=== PATIENT | female | born 1970 | race Caucasian/White ===

== ENCOUNTER 2020-06-28 12:40 | Outpatient (CLI) | payer OTHER, SELFPAY ==
--- NOTE | ~2020-06-28 | MM_ITS ---
EXAMINATION: MM screening mati BI w dahlia HISTORY: Screening mammogram TECHNIQUE: Craniocaudal and mediolateral oblique 3-D tomosynthesis images were obtained and synthetic 2-D images were generated. CAD analysis was submitted and interpreted. COMPARISON: 02/28/2019 diagnostic left digital mammogram and limited left breast ultrasound 02/15/2019, 01/27/2018, 09/05/2016 bilateral digital screening mammogram examinations BREAST PARENCHYMAL COMPOSITION: The breasts are heterogeneously dense, which may obscure small masses . FINDINGS: There is no evidence of suspicious mass, calcification, or architectural distortion to sugg est malignancy in either breast. There has been no suspicious interval change. IMPRESSION: 1. No mammographic evidence of malignancy. 2. Recommend routine screening mammography in one year. BI-RADS Category 1: Negative Reviewed, dictated and finalized at location A. BOARD DESIGNER
== END 2020-06-28 12:41 ==
PROVIDERS: PCP Family Medicine; Visit Provider Nurse Practitioner Obstetrics & Gynecology
DX: Z12.31 Encounter for screening mammogram for malignant neoplasm of breast (principal)
CPT/HCPCS: 77063; 77067

== ENCOUNTER 2024-07-13 00:07 | Emergency (ER) | payer OTHER, SELFPAY ==
[2024-07-13 00:08] VITALS: BP 128/86; PULSE 109; RESP 20; TEMP 36.8; O2SAT 100
--- OUTSIDE RECORDS SUMMARY | 2024-07-13 00:14 | XMS_ITS | Referral Summary ---
Author Organization [facility] [address] [facility] Address [address] [place] [address] Care Team Providers Care Conservation Technician Name Role Phone Julius Toledo MD Primary Care Provider [phone] Encounters Date Type Department Care Team Description 06/29/2024 2:33 PM RUG DYER - 06/29/2024 11:59 PM RUG DYER Hospital Encounter [facility] [address] [place] [address] Abnormal mammogram of right breast Discharge Disposition: Discharge to home or self care 06/29/2024 2:33 PM RUG DYER - 06/29/2024 11:59 PM RUG DYER Hospital Encounter [facility] [address] [place] [address] Abnormal mammogram of right breast Discharge Disposition: Discharge to home or self care 06/03/2024 3:00 PM RUG DYER Office Visit [facility] [address] [facility] [address] [place] [id number] Clarissa Matthews NP Migraine with aura and without status migrainosus, not intractable 05/23/2024 Telephone [facility] [address] [place] [address] Julius Toledo MD Additional Services Or Orders from Last 3 Months Allergies Active Allergy Reactions Criticality Noted Date Comments Morphine Rash Reaction: Rash, Medications ergocalciferol (VITAMIN D) 50,000 unit capsule Take 1 capsule (50,000 Units total) by mouth once a week 12 capsule 3 4 09/14/19 25 Active triamcinolone (KENALOG) 0.1 % creamIndications:A llergic contact dermatitis due to plants, except food Apply topically 3 (three) times a day for 10 days 28.4 g 4 Active rizatriptan PATIENT CARE (MAXALT-PATIENT CARE) 10 mg disintegrating tabletIndications: Migraine with aura and without status migrainosus, not intractable Take 1 tablet (10 mg total) by mouth once as needed for migraine May repeat in 2 hours if unresolved. Do not exceed 30 mg in 24 hours. 9 tablet 11 5 06/03/19 26 Active rimegepant (NURTEC ODT) tablet,disintegrat ing Take 1 tablet (75 mg total) by mouth daily as needed (migraine fare up) 8 tablet 11 5 Active topiramate (TOPAMAX) 50 mg tabletIndications: Migraine with aura and without status migrainosus, not intractable Take 1 tablet (50 mg total) by mouth 2 (two) times a day 180 tablet 3 5 06/03/19 26 Active Active Problems Problem Noted Date Diagnosed Date Vitamin D deficiency 09/10/2023 Assessment & Plan (09/10/2023 2:54 PM CDT): Will check vitamin-D level today and plan accordingly. Menorrhagia with regular cycle 02/07/2022 Family history of thyroid disease 07/28/2021 Overview (07/28/2021): TFTs ordered. aware to check [facility] for results/lab letter. Encounter for vitamin deficiency screening 07/28 Overview (07/28/2021): vitamin D ordered. will contact via [facility] (reuslts/lab letter) to give results. Class 3 severe obesity due t o excess calories without serious comorbidity with body mass index (BMI) of 40.0 to 44.9 in adult 07/26/2021 Assessment & Plan (07/28/2021 4:27 PM CDT): Reviewed need to lose weight, reviewed health benefits. Reviewed recommendations for daily intake & activity 20-30 minutes/day. Discussed healthy diet and importance of regular physical activity. Colon cancer screening 07/26/2021 Assessment & Plan (09/10/2023 2:53 PM CDT): Does not have time for colonoscopy. Denies personal or family history colon cancer or polyps. She is interested in Cologuard. Discussed possible false-negative and false-positive results. She states understanding. Assessment & Plan (07/28/2021 4:29 PM CDT): Referral to [facility] for colon cancer screening. Aware that GI office should call to set up. Contact # given to call if she does not receive call. Screening mammogram for breast cancer 07/26/2021 Assessment & Plan (07/28/2021 4:29 PM CDT): Mammogram order given; will call with results when received. Encouraged to perform monthly SBE. Left knee pain 11/12/2020 Assessment & Plan (11/12/2020 4:19 PM CDT): Pain improves with ibuprofen. Given prednisone and referral to ortho for further evaluation given new swelling in setting of no injury. Aware to not take ibuprofen/nsaids while taking prednisone. Reviewed correct dose of ibuprofen. Will also try topical treatment. Continue RICE. Plantar fasciitis, bilateral 11/12/2020 Assessment & Plan (11/12/2020 4:27 PM CDT): Patient history consistent with PF. No abnormal findings on exam. Reviewed proper footwear and stretching exercise handout given. Class 2 obesity due to exces s calories without serious comorbidity with body mass index (BMI) of 38.0 to 38.9 in adult 07/13/2020 Assessment & Plan (11/12/2020 4:17 PM CDT): Weight increase of 10lbs in the past year. Discussed diet and exercise to achieve weight loss. Recommend limiting refined sugar, simple carbohydrates, fast foods, and processed foods. Increase intake of lean meats, low-fat dairy, fresh fruits/vegetables, and fiber. Drink plenty of water and eliminate sugar- sweetened beverages. Patient more motivated to lose weight with current knee pain. Assessment & Plan (07/13/2020 3:07 PM RUG DYER): Reviewed need to lose weight, reviewed health benefits. Reviewed recommendations for daily intake & activity 20-30 minutes/day. Discussed healthy diet and importance of regular physical activity. Annual physical exam 01/25/2019 Assessment & Plan (09/10/2023 2:52 PM CDT): In regard to health maintenance, Colonoscopy Cologuard ordered Mammogram up-to-date ASCVD risk: 1.7% Eat a healthy diet: focus on lean meats and proteins, more fruits, vegetables and whole grains and low in sugars and fats. Limit red meat and avoid processed meat. Maintain a healthy weight; avoid being overweight. Aim for a normal body mass index (BMI) of 18.5-24.9. Help learning to eat healthier, we can set up appointment with brusher and shearer/production supervisor trainee. Have an active lifestyle, strive for 30 minutes of moderate exercise 5 times a week and strength or resistance training at least twice a week. Use broad-spectrum (UVA+UVB) sunscreen with SPF 30 or greater, is water resistant, limit time spent in the sun (10 am-4pm), wear hat, wear UV protective clothing, wear sunglasses. Never use a tanning bed. Skin that was irradiated may be more sensitive over your lifetime. Do not smoke or chew tobacco; participate in a smoking cessation program. Limit alcohol intake, 1 drink per day for a woman and 2 drinks per day for a man. Assessment & Plan (07/28/2021 4:25 PM CDT): 1. Eat a healthy diet: focus on lean meats and proteins, more fruits, vegetables and whole grains and low in sugars and fats. Limit red meat and avoid processed meat. 2. Maintain a healthy weight; avoid being overweight. Aim for a normal body mass index (BMI) of 18.5-24.9. Help learning to eat healthier, we can set up appointment with brusher and shearer/production supervisor trainee. 3. Have an active lifestyle, strive for 30 minutes of moderate exercise 5 times a week and strength or resistance training at least twice a week. 4. Use broad-spectrum (UVA+UVB) sunscreen with SPF 30 or greater, is water resistant, limit time spent in the sun (10 am-4pm), wear hat, wear UV protective clothing, wear sunglasses. Never use a tanning bed. Skin that was irradiated may be more sensitive over your lifetime. 5. Does not smoke or chew tobacco. 6. Limit alcohol intake, 1 drink per day for a woman. Assessment & Plan (07/13/2020 3:36 PM RUG DYER): 1. Eat a healthy diet: focus on lean meats and proteins, more fruits, vegetables and whole grains and low in sugars and fats. Limit red meat and avoid processed meat. 2. Maintain a healthy weight; avoid being overweight. Aim for a normal body mass index (BMI) of 18.5-24.9. Help learning to eat healthier, we can set up appointment with brusher and shearer/production supervisor trainee. 3. Have an active lifestyle, strive for 30 minutes of moderate exercise 5 times a week and strength or resistance training at least twice a week. 4. Use broad-spectrum (UVA+UVB) sunscreen with SPF 30 or greater, is water resistant, limit time spent in the sun (10 am-4pm), wear hat, wear UV protective clothing, wear sunglasses. Never use a tanning bed. Skin that was irradiated may be more sensitive over your lifetime. 5. Does not smoke or chew tobacco. 6. Limit alcohol intake, 1 drink per day for a woman. Assessment & Plan (01/25/2019 12:03 PM CDT): 1. Eat a healthy diet: focus on lean meats and proteins, more fruits, vegetables and whole grains and low in sugars and fats. Limit red meat and avoid processed meat. 2. Maintain a healthy weight; avoid being overweight. Aim for a normal body mass index (BMI) of 18.5-24.9. Help learning to eat healthier, we can set up appointment with brusher and shearer/production supervisor trainee. 3. Have an active lifestyle, strive for 30 minutes of moderate exercise 5 times a week and strength or resistance training at least twice a week. 4. Use broad-spectrum (UVA+UVB) sunscreen with SPF 30 or greater, is water resistant, limit time spent in the sun (10 am-4pm), wear hat, wear UV protective clothing, wear sunglasses. Never use a tanning bed. Skin that was irradiated may be more sensitive over your lifetime. 5. Do not smoke or chew tobacco; participate in a smoking cessation program. 6. Limit alcohol intake, 1 drink per day for a woman. Encounter for screening for lipoid disorders 02/2019 Assessment & Plan (07/28/2021 4:26 PM CDT): 01/26/19 JX=655 HDL=55 TG=68 KKG=223 TC/HDL=3/0 03/13/20 KP=094 HDL=55 ZZ=501 LDL=98 TC/HDL=3.2 07/13/20 NO=346 HDL=55 WS=584 LDL=98 TC/HDL=3.2 Reviewed that LDL upper end of normal. Reviewed lifestyle changes to improve lipid panel. Lipid panel ordered; will call w/results when received. Reviewed diet/exercise recommendations. The 10-year ASCVD risk score (Jyoti ULLOA Jr., et al., 2013) is: 1% Values used to calculate the score: Age: 51 years Sex: Female Is Non- : No Diabetic: No Tobacco smoker: No Systolic Blood Pressure: 122 mmHg Is BP treated: No HDL Cholesterol: 55 mg/dL Total Cholesterol: 179 mg/dL Assessment & Plan (07/14/2020 4:06 PM RUG DYER): 01/26/19 YB=949 HDL=55 TG=68 EFE=508 TC/HDL=3/0 03/13/20 TX=638 HDL=55 RI=096 LDL=98 TC/HDL=3.2 07/13/20 OR=151 HDL=55 TI=886 LDL=98 TC/HDL=3.2 The 10-year ASCVD risk score (Jyoti ULLOA Jr., et al., 2013) is: 0.7% Values used to calculate the score: Age: 49 years Sex: Female Is Non- : No Diabetic: No Tobacco smoker: No Systolic Blood Pressure: 116 mmHg Is BP treated: No HDL Cholesterol: 55 mg/dL Total Cholesterol: 179 mg/dL Copy of results given to Rosalia Ruffin. Reviewed results at time of appointment. Assessment & Plan (01/25/2019 12:03 PM CDT): Lipid panel ordered; will call w/results when received. Reviewed diet/exercise recommendations. Mastodynia 10/15/2018 Disorder of breast 08/11/2018 Overview (07/03/2023): Disorder of breast, unspecified;Recorded Elsewhere: No Location: [facility] Source: EHR Chronic: N Practice ID: [id number] Billable Time: 11:30:00 AM Refused influenza vaccine 07/08/2018 Assessment & Plan (07/28/2021 4:24 PM CDT): Discussed and the patient refuses immunization today. Educated regarding the need to vaccinate for personal protection and to limit the viruses in the community to protect those most vulnerable. Assessment & Plan (07/13/2020 3:34 PM RUG DYER): Discussed and the patient refuses immunization today. Educated regarding the need to vaccinate for personal protection and to limit the viruses in the community to protect those most vulnerable. Assessment & Plan (01/25/2019 11:53 AM CDT): Discussed and the patient refuses immunization today. Educated regarding the need to vaccinate for personal protection and to limit the viruses in the community to protect those most vulnerable. Generalized anxiety disorder 07/08/2018 Assessment & Plan (07/14/2020 4:09 PM RUG DYER): No longer taking medications. Feels that anxiety controlled w/o medications at this time. Oldest son out of school setting has greatly improved/lowered her anxiety. He is receiving therapy (learning life skills). Migraine with aura and witho ut status migrainosus, not intractable 07/08/2018 Assessment & Plan (09/10/2023 2:54 PM CDT): Will continue following with Neurology. Advised her if she has ever a pinch we can refill her migraine medicine. Assessment & Plan (11/12/2020 4:19 PM CDT): Has been unable to schedule neurologist with insurance changes. Instructed to call the number on her card to find out who accepts current plan. Will contact the office with provider name so referral can be placed. Assessment & Plan (07/14/2020 4:15 PM RUG DYER): Dr Cintron has retired. She has appt to establish care w/Dr Perez next week. topiramate refilled today. Reviewed med SE & scheduling. Menstrual cycle disorder 09/13/2015 Overview (07/03/2023): Excessive and frequent menstruation with irregular cycle;Recorded Elsewhere: No Location: [facility] Source: EHR Chronic: N Practice ID: [id number] Billable Time: 09:30:00 AM Cyst of ovary 09/13/2015 Overview (07/03/2023): Unspecified ovarian cyst, right side;Recorded Elsewhere: No Location: [facility] Source: EHR Chronic: N Practice ID: [id number] Billable Time: 11:00:00 AM Lymphadenopathy 08/17/2015 Overview (07/03/2023): Enlarged lymph nodes, unspecified;Recorded Elsewhere: No Location: [facility] Source: EHR Chronic: N Practice ID: [id number] Billable Time: 01:00:00 PM Alopecia 08/03/2015 Overview (07/03/2023): Alopecia;Recorded Elsewhere: No Location: [facility] Source: EHR Chronic: N Practice ID: [id number] Billable Time: 01:00:00 PM Irregular intermenstrual bleeding 11/07/2014 Overview (07/03/2023): Intermenstrual bleeding;Recorded Elsewhere: No Location: [facility] Source: EHR Chronic: N Practice ID: [id number] Billable Time: 03:30:00 PM Mechanical complication of i ntrauterine contraceptive device 11/07/2014 Overview (07/03/2023): Mechanical complication due to intrauterine contraceptive device;Recorded Elsewhere: No Location: [facility] Source: EHR Chronic: N Practice ID: [id number] Billable Time: 03:00:00 PM Uses intrauterine device for control 08/21 Overview (07/03/2023): Surveillance of intrauterine contraceptive device;Recorded Elsewhere: No Location: [facility] Source: EHR Chronic: N Practice ID: [id number] Billable Time: 11:00:00 AM Benign essential hypertension 06/22/2014 Overview (07/03/2023): Hypertension, Benign;Recorded Elsewhere: No Location: [facility] Source: EHR Chronic: N Practice ID: [id number] Billable Time: 10:15:00 AM Obesity 06/22/2014 Overview (07/03/2023): Obesity;Recorded Elsewhere: No Location: [facility] Source: EHR Chronic: N Practice ID: [id number] Billable Time: 10:15:00 AM Headache 06/09/2013 Overview (07/03/2023): Headache;Recorded Elsewhere: No Location: [facility] Source: EHR Chronic: N Practice ID: [id number] Billable Time: 10:15:00 AM Malaise and fatigue 06/09/2013 Overview (07/03/2023): Fatigue / Malaise;Recorded Elsewhere: No Location: [facility] Source: EHR Chronic: N Practice ID: [id number] Billable Time: 10:15:00 AM Proteinuria 04/01/2012 Overview (07/03/2023): Proteinuria;Recorded Elsewhere: No Location: [facility] Source: EHR Chronic: N Practice ID: [id number] Billable Time: 11:00:00 AM Resolved Problems Problem Noted Date Diagnosed Date Resolved Date BMI 38.0-38.9,adult 01/25/2019 07/13/19 21 Assessment & Plan (01/25/2019 12:03 PM CDT): Reviewed need to lose weight, reviewed health benefits. Reviewed recommendations for daily intake & activity 20-30 minutes/day. Discussed healthy diet and importance of regular physical activity. Abnormal ultrasound 10/15/2018 07/14/19 21 Accessory breast tissue of axilla 10/15/2018 07/14/2020 Anxiety 02/01/2015 07/14/2020 Overview (08/21/2016): Anxiety Immunizations Immunization Administration Dates Next Due Influenza, Unspecified 09/10/2023(Deferr ed: Patient Refused),01/16/2023(Deferred: Patient Refused),07/26/2021(Deferred: Patient Refused),07/13/2020(Deferred: Patient Refused),02/16/2020(Deferred: Patient Refused),02/15/2019(Deferred: Patient Refused),08/12/2018(Deferred: Patient Refused),08/12/2018(Deferred: Patient Refused),08/12/2018(Deferred: Patient Refused),07/08/2018(Deferred: Patient Refused),07/08/2018(Deferred: Patient Refused),01/07/2018(Deferred: Patient Refused),05/25/2017(Deferred: Patient Refused),05/18/2017(Deferred: Patient Refused),05/18/2017(Deferred: Patient Refused),05/18/2017(Deferred: Patient Refused),05/19/2016(Deferred: Patient Refused) Pfizer SARS-CoV-2 Monovalent Vaccination (12+ Yrs) PURPLE 09/13/2020,08/21/2020 Social History Tobacco Use Types Packs/Day Years Used Date Smoking Tobacco: Never Smokeless Tobacco: Never Tobacco Cessation:Counseling Given: Not Answered Alcohol Use Standard Drinks/Week Comments No 0 (1 standard drink = 0.6 oz pur e alcohol) PHQ-2 Answer Date Recorded PHQ-2 Total Score (If total score is 3 or more points, staff should administer the PHQ-9) 0 09/10/2023 Comments No Sex and Gender Information Value Date Recorded Sex Assigned at Not on file Legal Sex Female 1:06 AM RUG DYER Gender Identity Female 06/11/2021 9:40 AM RUG DYER Sexual Orientation Straight 06/11/2021 9: 40 AM RUG DYER Last Filed Vital Signs Vital Sign Reading Time Taken Comments Blood Pressure 136/91 06/03/2024 2:56 PM RUG DYER Pulse 75 06/03/2024 2:56 PM RUG DYER Temperature 36.8 C (98.3 F) 12/02/2023 3:36 PM CDT Respiratory Rate 16 12/02/2023 3:36 PM CDT Oxygen Saturation 99% 06/03/2024 2:56 PM RUG DYER Inhaled Oxygen Concentration - - Weight 111.7 kg (246 lb 3.2 oz) 06/03/2024 2:56 PM RUG DYER Height 157.5 cm (5' 2 ) 06/29/2024 2:38 PM RUG DYER Body Mass Index 45.02 06/03/2024 2:56 PM RUG DYER Plan of Treatment Not on file Procedures Procedure Name Priority Date/Time Associated Diagnosis Comments US BREAST RIGHT LIMITED Schedule Routine, Read Routine (OP Routine) 06/29/2024 3:42 PM RUG DYER Abnormal mammogram of right breast DIAGNOSTIC MAMMOGRAM BILATERAL W EMILEE Schedule Routine, Read Routine (OP Routine) 06/29/2024 2:51 PM RUG DYER Abnormal mammogram of right breast from Last 3 Months Results * US Breast Right Limited (06/29/2024 3:42 PM RUG DYER) Anatomical Region Laterality Modality Breast Right Ultrasound 06/29/2024 4:10 PM RUG DYER Impressions 06/29/2024 4:10 PM RUG DYER Findings in the right breast are stable and are likely complex cysts. These will continue to be classified as probably benign. A follow-up bilateral diagnostic mammogram and right breast ultrasound are recommended in 12 months. BI-RADS: 3 - Probably benign The patient has been or will be contacted. The patient will be entered into a reminder system with a target due date of 12 months for her next examinations. Electronically signed by: Maximilian Sutton M.D. Narrative 06/29/2024 4:10 PM RUG DYER EXAMINATION: DIAGNOSTIC MAMMOGRAM BILATERAL W EMILEE, US BREAST RIGHT LIMITED ORDERING HEALTHCARE PROVIDER: JULIUS TOLEDO HISTORY: Follow-up probably benign lesions in the right breast. COMPARISON: 06/12/2023, 09/12/2022, 02/26/2022, 01/07/2022, 06/28/2019 TECHNIQUE: CC and MLO routine views of the Bilateral breasts were obtained with digital technique using breast tomosynthesis with C view. Computer aided detection was utilized. This was followed by targeted right breast sonography. FINDINGS: The breasts are heterogeneously dense, which may obscure small masses. The previously seen mass at the 7 o'clock position of the right breast, 7 8 cm from the nipple and a cluster of masses at the 7 o'clock position of the right breast, middle depth are all less prominent on the current examination. There are no new suspicious masses, calcifications, or architectural distortion. Further evaluation was obtained with sonography. Targeted right breast ultrasound: At the 11 o'clock position of the right breast, 8 cm from the nipple, there is a hypoechoic lesion measuring 0.4 x 0.4 x 0.2 cm. This previously measured 0.5 x 0.4 x 0.2 cm. This is likely a complex cyst. At the 10 o'clock position of the right breast, 10 cm from the nipple, there is a hypoechoic lesion measuring 0.4 x 0.4 x 0.2 cm. This is stable in size and is likely also a complex cyst. These findings demonstrate stability for 12 months and will continue to be classified as probably benign. us Julius Toledo MD IMG MAMMO PROCEDURES Emelia l Result * DIAGNOSTIC MAMMOGRAM BILATERAL W EMILEE (06/29/2024 2:51 PM RUG DYER) Anatomical Region Laterality Modality Breast Bilateral Mammography 06/29/2024 4:10 PM RUG DYER Impressions 06/29/2024 4:10 PM RUG DYER Findings in the right breast are stable and are likely complex cysts. These will continue to be classified as probably benign. A follow-up bilateral diagnostic mammogram and right breast ultrasound are recommended in 12 months. BI-RADS: 3 - Probably benign The patient has been or will be contacted. The patient will be entered into a reminder system with a target due date of 12 months for her next examinations. Electronically signed by: Maximilian Sutton M.D. Narrative 06/29/2024 4:10 PM RUG DYER EXAMINATION: DIAGNOSTIC MAMMOGRAM BILATERAL W EMILEE, US BREAST RIGHT LIMITED ORDERING HEALTHCARE PROVIDER: JULIUS TOLEDO HISTORY: Follow-up probably benign lesions in the right breast. COMPARISON: 06/12/2023, 09/12/2022, 02/26/2022, 01/07/2022, 06/28/2019 TECHNIQUE: CC and MLO routine views of the Bilateral breasts were obtained with digital technique using breast tomosynthesis with C view. Computer aided detection was utilized. This was followed by targeted right breast sonography. FINDINGS: The breasts are heterogeneously dense, which may obscure small masses. The previously seen mass at the 7 o'clock position of the right breast, 7 8 cm from the nipple and a cluster of masses at the 7 o'clock position of the right breast, middle depth are all less prominent on the current examination. There are no new suspicious masses, calcifications, or architectural distortion. Further evaluation was obtained with sonography. Targeted right breast ultrasound: At the 11 o'clock position of the right breast, 8 cm from the nipple, there is a hypoechoic lesion measuring 0.4 x 0.4 x 0.2 cm. This previously measured 0.5 x 0.4 x 0.2 cm. This is likely a complex cyst. At the 10 o'clock position of the right breast, 10 cm from the nipple, there is a hypoechoic lesion measuring 0.4 x 0.4 x 0.2 cm. This is stable in size and is likely also a complex cyst. These findings demonstrate stability for 12 months and will continue to be classified as probably benign. Julius Toledo MD IMG MAMMO PROCEDURES Emelia l Result from Last 3 Months Insurance [facility] Care Teams Conservation Technician Relationship Specialty Start Date End Date Julius Toledo MD [address] [place] [address] PCP - General 08/06/11
--- OUTSIDE RECORDS SUMMARY | 2024-07-13 00:14 | XMS_ITS | Clinical Summary ---
Author Organization [facility] [place] [address] [facility] Address [address] [address] Care Team Providers Care Commercial Account Manager Name Role Phone Tim Toledo MD Primary Care Provider [phone] Allergies Active Allergy Reactions Criticality Noted Date [...] 10 days 28.4 g 4 Active rizatriptan BENEFIT SPECIALIST (MAXALT-BENEFIT SPECIALIST) 10 mg disintegrating tabletIndications: Migraine with aura [...] Overview (07/28/2021): TFTs ordered. aware to check [facility] for results/lab letter. Encounter for vitamin deficiency screening 07/28 Overview (07/28/2021): vitamin D ordered. will contact via [facility] (reuslts/lab letter) to give results. Class 3 [...] Plan (07/28/2021 4:29 PM CDT): Referral to [facility] for colon cancer screening. Aware that [...] pain. Assessment & Plan (07/13/2020 3:07 PM SALES RELATIONSHIP MANAGER): Reviewed need to lose weight, reviewed health [...] healthier, we can set up appointment with pin drafter operator/anthropologist. Have an active lifestyle, strive for 30 [...] healthier, we can set up appointment with pin drafter operator/anthropologist. 3. Have an active lifestyle, strive for [...] woman. Assessment & Plan (07/13/2020 3:36 PM SALES RELATIONSHIP MANAGER): 1. Eat a healthy diet: focus on lean meats and proteins, more fruits, vegetables and whole grains and low in sugars and fats. Limit red meat and avoid processed meat. 2. Maintain a healthy weight; avoid being overweight. Aim for a normal body mass index (BMI) of 18.5-24.9. Help learning to eat healthier, we can set up appointment with pin drafter operator/anthropologist. 3. Have an active lifestyle, strive for [...] healthier, we can set up appointment with pin drafter operator/anthropologist. 3. Have an active lifestyle, strive for [...] & Plan (07/28/2021 4:26 PM CDT): 01/26/19 TG=295 HDL=55 TG=68 KJG=302 TC/HDL=3/0 03/13/20 OP=966 HDL=55 YH=731 LDL=98 TC/HDL=3.2 07/13/20 DD=225 HDL=55 BA=927 LDL=98 TC/HDL=3.2 Reviewed that LDL upper end of normal. Reviewed lifestyle changes to improve lipid panel. Lipid panel ordered; will call w/results when received. Reviewed diet/exercise recommendations. The 10-year ASCVD risk score (Jyoti DC Jr., et al., 2013) is: 1% Values used to calculate the score: Age: 51 years Sex: Female Is Non- : No Diabetic: No Tobacco smoker: No Systolic Blood Pressure: 122 mmHg Is BP treated: No HDL Cholesterol: 55 mg/dL Total Cholesterol: 179 mg/dL Assessment & Plan (07/14/2020 4:06 PM SALES RELATIONSHIP MANAGER): 01/26/19 OF=833 HDL=55 TG=68 FUF=114 TC/HDL=3/0 03/13/20 RT=618 HDL=55 XS=726 LDL=98 TC/HDL=3.2 07/13/20 LH=216 HDL=55 QB=020 LDL=98 TC/HDL=3.2 The 10-year ASCVD risk score [...] Disorder of breast, unspecified;Recorded Elsewhere: No Location: [facility] Source: EHR Chronic: N Practice ID: [id number] Billable Time: 11:30:00 AM Refused influenza vaccine 07/08/2018 Assessment & Plan (07/28/2021 4:24 PM CDT): Discussed and the patient refuses immunization today. Educated regarding the need to vaccinate for personal protection and to limit the viruses in the community to protect those most vulnerable. Assessment & Plan (07/13/2020 3:34 PM SALES RELATIONSHIP MANAGER): Discussed and the patient refuses immunization today. [...] 07/08/2018 Assessment & Plan (07/14/2020 4:09 PM SALES RELATIONSHIP MANAGER): No longer taking medications. Feels that anxiety [...] placed. Assessment & Plan (07/14/2020 4:15 PM SALES RELATIONSHIP MANAGER): Dr Cintron has retired. She has appt to establish care w/Dr Perez next week. topiramate refilled today. Reviewed med SE & scheduling. Menstrual cycle disorder 09/13/2015 Overview (07/03/2023): Excessive and frequent menstruation with irregular cycle;Recorded Elsewhere: No Location: [facility] Source: EHR Chronic: N Practice ID: [id number] Billable Time: 09:30:00 AM Cyst of ovary 09/13/2015 Overview (07/03/2023): Unspecified ovarian cyst, right side;Recorded Elsewhere: No Location: [facility] Source: EHR Chronic: N Practice ID: [id number] Billable Time: 11:00:00 AM Lymphadenopathy 08/17/2015 Overview (07/03/2023): Enlarged lymph nodes, unspecified;Recorded Elsewhere: No Location: [facility] Source: EHR Chronic: N Practice ID: [id number] Billable Time: 01:00:00 PM Alopecia 08/03/2015 Overview (07/03/2023): Alopecia;Recorded Elsewhere: No Location: [facility] Source: EHR Chronic: N Practice ID: [id number] Billable Time: 01:00:00 PM Irregular intermenstrual bleeding 11/07/2014 Overview (07/03/2023): Intermenstrual bleeding;Recorded Elsewhere: No Location: [facility] Source: EHR Chronic: N Practice ID: [id number] Billable Time: 03:30:00 PM Mechanical complication of i ntrauterine contraceptive device 11/07/2014 Overview (07/03/2023): Mechanical complication due to intrauterine contraceptive device;Recorded Elsewhere: No Location: [facility] Source: EHR Chronic: N Practice ID: [id number] Billable Time: 03:00:00 PM Uses intrauterine device for control 08/21 Overview (07/03/2023): Surveillance of intrauterine contraceptive device;Recorded Elsewhere: No Location: [facility] Source: EHR Chronic: N Practice ID: [id number] Billable Time: 11:00:00 AM Benign essential hypertension 06/22/2014 Overview (07/03/2023): Hypertension, Benign;Recorded Elsewhere: No Location: [facility] Source: EHR Chronic: N Practice ID: [id number] Billable Time: 10:15:00 AM Obesity 06/22/2014 Overview (07/03/2023): Obesity;Recorded Elsewhere: No Location: [facility] Source: EHR Chronic: N Practice ID: [id number] Billable Time: 10:15:00 AM Headache 06/09/2013 Overview (07/03/2023): Headache;Recorded Elsewhere: No Location: [facility] Source: EHR Chronic: N Practice ID: [id number] Billable Time: 10:15:00 AM Malaise and fatigue 06/09/2013 Overview (07/03/2023): Fatigue / Malaise;Recorded Elsewhere: No Location: [facility] Source: EHR Chronic: N Practice ID: [id number] Billable Time: 10:15:00 AM Proteinuria 04/01/2012 Overview (07/03/2023): Proteinuria;Recorded Elsewhere: No Location: [facility] Source: EHR Chronic: N Practice ID: [id number] [...] 07/14/2020 Anxiety 02/01/2015 07/14/2020 Overview (08/21/2016): Anxiety Encounters Date Type Department Care Team Description 06/29/2024 2:33 PM SALES RELATIONSHIP MANAGER - 06/29/2024 11:59 PM SALES RELATIONSHIP MANAGER Hospital Encounter [facility] [place] [address] [place] [address] Abnormal mammogram of right breast Discharge Disposition: Discharge to home or self care 06/29/2024 2:33 PM SALES RELATIONSHIP MANAGER - 06/29/2024 11:59 PM SALES RELATIONSHIP MANAGER Hospital Encounter [facility] [address] [place] [address] Abnormal mammogram of right breast Discharge Disposition: Discharge to home or self care 06/03/2024 3:00 PM SALES RELATIONSHIP MANAGER Office Visit [facility] [address] [place] [address] Clarissa Matthews NP Migraine with aura and without status migrainosus, not intractable 05/23/2024 [facility]phone [facility] [address] [place] [address] Tim Toledo MD Additional Services Or Orders from Last 3 Months Immunizations Immunization Administration Dates Next Due Influenza, Unspecified 09/10/2023(Deferr ed: Patient Refused),01/16/2023(Deferred: Patient Refused),07/26/2021(Deferred: Patient Refused),07/13/2020(Deferred: Patient Refused),02/16/2020(Deferred: Patient Refused),02/15/2019(Deferred: Patient Refused),08/12/2018(Deferred: Patient Refused),08/12/2018(Deferred: Patient Refused),08/12/2018(Deferred: Patient Refused),07/08/2018(Deferred: Patient Refused),07/08/2018(Deferred: Patient Refused),01/07/2018(Deferred: Patient Refused),05/25/2017(Deferred: Patient Refused),05/18/2017(Deferred: Patient Refused),05/18/2017(Deferred: Patient Refused),05/18/2017(Deferred: Patient Refused),05/19/2016(Deferred: Patient Refused) Pfizer SARS-CoV-2 Monovalent Vaccination (12+ Yrs) PURPLE 09/13/2020,08/21/2020 Surgical History Surgery Date Site/Laterality Comments BREAST BIOPSY 10/16/2018 - 11/14/2018 Right benign needle bx, no scar SECTION x3 - '02, '04, '07 Medical History Medical History Date Comments Anxiety disorder Migraine BRCA negative BRCA2 negative BRCA1 negative Family History Medical History Relation Name Comments Cancer Father Jerel Shaver Other Father Jerel Shaver pancreatic ca ncer/ type 2 dm; Pancreatic cancer Father Jerel Sivakumar Breast cancer Maternal Grandmother Allergy (severe) Mother Cira Shaver Arthritis Mother Cira Shaver Breast cancer Mother Cira Shaver Other Mother Cira Shaver healthy; Breast cancer Sister Mervat Threlkeld BRCA posit ike Cancer Sister Mervat Threlkeld Allergy (severe) Son 1 Wade Developmental delay Son 1 Wade Developmental delay Son 2 Kee Learning disabilities Son 2 Kee Ovarian cancer Neg Hx Thyroid cancer Neg Hx Relation Name Status Comments Father Jerel Shaver (Age 77) Maternal Grandmother Mother Cira Shaver Alive Sister Mervat Meeks Alive Son 1 Wade Son 2 Kee Social History Tobacco Use Types Packs/Day Years [...] on file Legal Sex Female 1:06 AM SALES RELATIONSHIP MANAGER Gender Identity Female 06/11/2021 9:40 AM SALES RELATIONSHIP MANAGER Sexual Orientation Straight 06/11/2021 9: 40 AM SALES RELATIONSHIP MANAGER Obstetrics History Para Term AB IAB SAB Ectopic Multiple Livin g Live Births 3 3 3 3 3 Date Outcome GA Total Labor Labor/2nd/3rd Weight Sex Type Anes PTL Leda A1 A5 Name Clin 2002 Term 4.082 kg (9 lb) M CS-LT ranv Living 2003 Term 3.856 kg (8 lb 8 oz) M CS-LT ranv Living 2006 Term 4.139 kg (9 lb 2 oz) M CS-LT ranv Living Last Filed Vital Signs Vital Sign Reading Time Taken Comments Blood Pressure 136/91 06/03/2024 2:56 PM SALES RELATIONSHIP MANAGER Pulse 75 06/03/2024 2:56 PM SALES RELATIONSHIP MANAGER Temperature 36.8 C (98.3 F) 12/02/2023 3:36 PM CDT Respiratory Rate 16 12/02/2023 3:36 PM CDT Oxygen Saturation 99% 06/03/2024 2:56 PM SALES RELATIONSHIP MANAGER Inhaled Oxygen Concentration - - Weight 111.7 kg (246 lb 3.2 oz) 06/03/2024 2:56 PM SALES RELATIONSHIP MANAGER Height 157.5 cm (5' 2 ) 06/29/2024 2:38 PM SALES RELATIONSHIP MANAGER Body Mass Index 45.02 06/03/2024 2:56 PM SALES RELATIONSHIP MANAGER Plan of Treatment Health Maintenance Due Date Last Done Comments Cervical Cancer Screening 1971 Colon Cancer Screening-Colonoscopy 1971 Hepatitis C Screening 1971 DTaP/Tdap/Td Vaccine (1 - Tdap) 07/18/1982 Hepatitis B Screening 07/18/1989 Zoster Vaccine (1 of 2) 07/18/2021 Covid-19 Vaccine (3 - 2023- season) 2024 09/13/2020, 08/21/2020 Influenza Vaccine (#1) 2024 Depression Screening 09/09/2024 09/10/2023, 07/26/2021, 11/12/2020, Additional history exists Regular Well Visit/Exam 18-64 09/09/2024 09/10/2023, 07/26/2021, 07/13/2020, Additional history exists Breast Cancer Screening-Mammogram 06/29/2025 06/29/2024, 06/12/2023, 01/07/2022, Additional history exists Pneumococcal vaccine <65 Aged Out No longer eligible based on patient's age to complete this topic Procedures Procedure Name Priority Date/Time Associated Diagnosis Comments US BREAST RIGHT LIMITED Schedule Routine, Read Routine (OP Routine) 06/29/2024 3:42 PM SALES RELATIONSHIP MANAGER Abnormal mammogram of right breast DIAGNOSTIC MAMMOGRAM BILATERAL W EMILEE Schedule Routine, Read Routine (OP Routine) 06/29/2024 2:51 PM SALES RELATIONSHIP MANAGER Abnormal mammogram of right breast from Last 3 Months Results * US Breast Right Limited (06/29/2024 3:42 PM SALES RELATIONSHIP MANAGER) Anatomical Region Laterality Modality Breast Right Ultrasound 06/29/2024 4:10 PM SALES RELATIONSHIP MANAGER Impressions 06/29/2024 4:10 PM SALES RELATIONSHIP MANAGER Findings in the right breast are stable [...] Maximilian Sutton M.D. Narrative 06/29/2024 4:10 PM SALES RELATIONSHIP MANAGER EXAMINATION: DIAGNOSTIC MAMMOGRAM BILATERAL W EMILEE, US BREAST RIGHT LIMITED ORDERING HEALTHCARE PROVIDER: TIM TOLEDO HISTORY: Follow-up probably benign lesions in [...] to be classified as probably benign. us Tim Toledo MD IMG MAMMO PROCEDURES Emelia l Result * DIAGNOSTIC MAMMOGRAM BILATERAL W EMILEE (06/29/2024 2:51 PM SALES RELATIONSHIP MANAGER) Anatomical Region Laterality Modality Breast Bilateral Mammography 06/29/2024 4:10 PM SALES RELATIONSHIP MANAGER Impressions 06/29/2024 4:10 PM SALES RELATIONSHIP MANAGER Findings in the right breast are stable [...] Maximilian Sutton M.D. Narrative 06/29/2024 4:10 PM SALES RELATIONSHIP MANAGER EXAMINATION: DIAGNOSTIC MAMMOGRAM BILATERAL W EMILEE, US BREAST RIGHT LIMITED ORDERING HEALTHCARE PROVIDER: TIM TOLEDO HISTORY: Follow-up probably benign lesions in [...] to be classified as probably benign. us Tim Toledo MD IMG MAMMO PROCEDURES Emelia l Result from Last 3 Months Insurance [facility] Care Teams Commercial Account Manager Relationship Specialty Start Date End Date Tim Toledo MD [address] [place] [address] PCP - General 08/06/11
--- OUTSIDE RECORDS SUMMARY | 2024-07-13 00:14 | XMS_ITS | Encounter Summary ---
Author Organization [facility] Address [address] [place] [address] Care Team Providers Care Ferryboat Operator Helper Name Role Phone Unavailable Primary Care Provider Unavailabl e Encounter Details Date Type Department Care Team (Late st Contact Info) Description 02/23/2020 Lab Requisition [facility] Derm[facility] Lab [address] [place] [phone] Terry Mccabe MD [address] [place] [address] Social History Tobacco Use Types Packs/Day Years Used Date Smoking Tobacco: Never Assessed Sex and Gender Information Value Date Recorded Sex Assigned at Not on file Gender Identity Not on file Sexual Orientation Not on file documented as of this encounter Plan of Treatment Not on file documented as of this encounter Procedures Procedure Name Priority Date/Time Associated Diagnosis Comments DERMATOPATHOLOGY Routine 02/22/2020 12:0 0 AM CDT documented in this encounter Results * DERMATOPATHOLOGY (02/22/2020 12:00 AM CDT) Case Report Dermatopathology Report Case: [id number] Authorizing Provider: Terry Mccabe MD Collected: 02/22/2020 12:00 AM Ordering Location: [facility] Lab Received: 02/23/2020 11:26 AM Pathologist: Castro Joshua MD Specimen: Skin, right superior medial cheek 0 3:37 PM CDT DERMATOPATHOLOGY LABORATORY Final Diagnosis Specimen A. SKIN, right superior medial cheek: BENIGN VERRUCOUS KERATOSIS, INFLAMED (L82.1) 0 3:37 PM CDT DERMATOPATHOLOGY LABORATORY Clinical History R/O SK vs nevus. 0 3:37 PM CDT DERMATOPATHOLOGY LABORATORY Gross Description Specimen A: Received is one formalin filled container labeled with the patient's name and designated right superior medial cheek. The specimen consists of a shave biopsy measuring 5x5x3 mm. Jar 0. 0 3:37 PM CDT DERMATOPATHOLOGY LABORATORY Microscopic Description Specimen A. SKIN, right superior medial cheek: Sections show hyperkeratosis, papillomatosis, hypergranulosis, and acanthosis. Inflammatory cells are present within the dermis. These histological findings can be seen in a verruca vulgaris or a seborrheic keratosis. 0 3:37 PM CDT DERMATOPATHOLOGY LABORATORY Disclaimer An external and internal positive and negative controls are appropriate for the histochemical, immunohistochemical and immunofluorescence stain(s) in this case (if any), except where stated explicitly. The performance characteristics of the stain(s) cited in this report were developed and its performance characteristic determined by the Dermatopathology Laboratory at [facility], directed by Dr. Amadou Joshua. These tests need not be, and therefore are not, approved by the [place] Food and Drug Administration. The tests are used for clinical purposes. Billing Codes Specimen Charges Stain Charges 54288 1 0 3:37 PM CDT DERMATOPATHOLOGY LABORATORY Embedded Images 0 3:37 PM CDT DERMATOPATHOLOGY LABORATORY Pathology/Cytolog y TISSUE SPECIMEN FROM SKIN / Unknown 02/22/2020 02/23/2020 11:26 AM CDT Terry Mccabe MD LAB - PATHOLOGY/CYTO LOGY ORDERABLES DERMATOPATHOLOGY LABORATORY [facility] - Department of Dermatology [address], [address] [phone] documented in this encounter Visit Diagnoses Not on filedocumented in this encounter
--- OUTSIDE RECORDS SUMMARY | 2024-07-13 00:14 | XMS_ITS | Clinical Summary ---
Author Organization [facility] Address [address] [place] [place] [address] Care Team Providers Care Decorating Supervisor Name Role Phone Julius Toledo MD Primary Care Provider [phone] Allergies Active Allergy Reactions Criticality Noted Date Comments Morphine Rash Low 10/15/2018 Medications topiramate (TOPAMAX) 100 mg tablet TAKE ONE TABLET BY MOUTH ONCE A DAY 5 10/12/2018 Active rizatriptan (MAXALT) 10 mg Tablet TAKE 1 TAB BY ORAL ROUTE ONCE, MAY REPEAT AT 2 HOUR INTERVALS; DO NOT EXCEED 30 MG IN 24 HOURS 5 10/12/2018 Active Clindamycin-Curtis oyl Peroxide 1.2 %(1 % base) -5 % Gel 09/09/2018 Active Active Problems Problem Noted Date Diagnosed Date Accessory breast tissue of axilla 10/15/2018 Mastodynia 10/15/2018 Abnormal ultrasound 10/15/2018 Social History Tobacco Use Types Packs/Day Years Used Date Smoking Tobacco: Never Smokeless Tobacco: Never Alcohol Use Standard Drinks/Week Comments Yes 0 (1 standard drink = 0.6 oz pur e alcohol) Comments No Sex and Gender Information Value Date Recorded Sex Assigned at Not on file Legal Sex Female 11:58 AM CDT Gender Identity Not on file Sexual Orientation Not on file Last Filed Vital Signs Vital Sign Reading Time Taken Comments Blood Pressure 134/93 11/09/2018 1:41 PM CDT Pulse 66 11/09/2018 1:41 PM CDT Temperature 36.9 C (98.4 F) 11/09/2018 1:41 PM CDT Respiratory Rate - - Oxygen Saturation 98% 11/09/2018 1:41 PM CDT Inhaled Oxygen Concentration - - Weight 100.2 kg (221 lb) 11/09/2018 1:41 PM CDT Height 158.8 cm (5' 2.5 ) 11/09/2018 1:41 PM CDT Body Mass Index 39.78 11/09/2018 1:41 PM CDT Plan of Treatment Health Maintenance Due Date Last Done Comments DTAP/TDAP/TD VACCINES (1 - Tdap) 07/18/1990 HEPATITIS B VACCINES (1 of 3 - 19+ 3-dose series) 07/18/1990 CERVICAL CANCER SCREENING 07/18/2001 COLORECTAL SCREENING 07/18/2016 Colorectal Cancer Screening 07/18/2016 FIT-DNA Q 3 years 07/18/2016 FIT/FOBT Q 1 year 07/18/2016 Flex Sig/CT Colonography Q 5 years 07/18/2016 BREAST CANCER SCREENING 02/29/2020 02/29/20 19, 02/15/2019, 01/27/2018, Additional history exists ZOSTER VACCINE (1 of 2) 07/18/2021 INFLUENZA VACCINE (#1) 2023 Procedures Procedure Name Priority Date/Time Associated Diagnosis Comments MAMMO DIAG UNI LEFT 3D EMILEE W OR WO CAD Routine 02/28/2019 Abnormal mammogram from Last 3 Months or Most Recently Relevant to Health Maintenance Results * MAMMO DIAG UNI LEFT 3D EMILEE W OR WO CAD (02/28/2019) Anatomical Region Laterality Modality Breast Left Other Dulce Barajas DO MAMMO ORDERABLES Final Resu lt from Last 3 Months or Most Recently Relevant to Health Maintenance Insurance [facility] [id number] Care Teams Decorating Supervisor Relationship Specialty Start Date End Date Julius Toledo MD PCP - General Family Practice 08/23/18
--- OUTSIDE RECORDS SUMMARY | 2024-07-13 00:14 | XMS_ITS | Encounter Summary ---
Author Organization [facility] Address [address] [place] [address] Care Team Providers Care Calender Operator Name Role Phone Unavailable Primary Care Provider Unavailabl e Encounter Details Date Type Department Care Team (Late st Contact Info) Description 08/26/2017 Lab Requisition [facility] DermPath Lab [address] [phone] Terry Mccabe MD [address] [place] [address] Social History Tobacco Use Types [...] Priority Date/Time Associated Diagnosis Comments DERMATOPATHOLOGY Routine 08/25/2017 12:0 0 AM CDT documented in this encounter Results * DERMATOPATHOLOGY (08/25/2017 12:00 AM CDT) Case Report Dermatopathology Report Case: [id number] Authorizing Provider: Terry Mccabe MD Collected: 08/25/2017 12:00 AM Pathologist: Castro Joshua MD Received: 08/26/2017 10:50 AM Specimens: A) - Skin, right cheek B) - Skin, left cheek 8 6:23 PM CDT DERMATOPATHOLOGY LABORATORY Final Diagnosis Specimen A. SKIN, right cheek: PIGMENTED SEBORRHEIC KERATOSIS (L82.1) PRESENT AT MARGIN Specimen B. SKIN, left cheek: INTRADERMAL MELANOCYTIC NEVUS (D22.30) PRESENT AT MARGIN (see microscopic description) 8 6:23 PM CDT DERMATOPATHOLOGY LABORATORY Clinical History A: R/O ISK, dys nevus. Check margins. B: R/O BCC, inflamed nevus, ISK. Check margins. 6:23 PM [facility] DERMATOPATHOLOGY LABORATORY Gross Description Specimen: A: Received is one formalin filled container labeled with the patient's name and designated right cheek. The specimen consists of a shave biopsy measuring [id number].The margin is inked green. Jar 0. Specimen: B: Received is one formalin filled container labeled with the patient's name and designated left cheek. The specimen consists of a shave biopsy measuring [id number]. The margin is inked green. Jar 0. 6:23 PM [facility] DERMATOPATHOLOGY LABORATORY Microscopic Description Specimen A. SKIN, right cheek: Sections show an acanthotic lesion composed of relatively uniform keratinocytes. There is hyperkeratosis and pseudo horn cysts. Pigment is present in the keratinocytes composing this tumor. This lesion is present at the margin of the specimen. Specimen B. SKIN, left cheek: There are nests of cytologically bland melanocytes within the dermis that mature with depth. This lesion is present at the margin of the specimen. Additional deeper sections were obtained and reviewed. 6:23 PM [facility] DERMATOPATHOLOGY LABORATORY Disclaimer An external and internal positive and negative controls are appropriate for the histochemical, immunohistochemical and immunofluorescence stain(s) in this case (if any), except where stated explicitly. The performance characteristics of the stain(s) cited in this report were developed and its performance characteristic determined by the Dermatopathology Laboratory at [facility]. These tests need not be, and therefore are not, approved by the [place] Food and Drug Administration. The tests are used for clinical purposes. Billing Codes Specimen Charges Stain Charges 54157 02807 1 1 6:23 PM CDT DERMATOPATHOLOGY LABORATORY Embedded Images 6:23 PM T DERMATOPATHOLOGY LABORATORY Pathology/Cytology TISSUE SPECIMEN FROM SKIN / Unknown 08/25/2017 08/26/2017 10:50 AM CDT Miscellaneous samples (specimen) TISSUE SPECIMEN FROM SKIN / Unknown 08/25/2017 08/26/2017 10:50 AM CDT Terry Mccabe MD LAB - PATHOLOGY/CYTO LOGY ORDERABLES DERMATOPATHOLOGY LABORATORY [facility] - Department of Dermatology [address] [place] [address], [address] Floor Lab [address] [phone] documented in this encounter Visit Diagnoses Not on filedocumented in this encounter
--- OUTSIDE RECORDS SUMMARY | 2024-07-13 00:14 | XMS_ITS | Patient Health Summary ---
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 This disclosure is being madepursuant to the Care Everywhere program and may not contain all information available regarding this patient. Last updated 18.[facility] Social History Tobacco Use Types Packs/Day Years Used Date Smoking Tobacco: Never Assessed Sex and Gender Information Value Date Recorded Sex Assigned at Not on file Gender Identity Not on file Sexual Orientation Not on file Procedures * DERMATOPATHOLOGY(Performed 02/22/2020) * DERMATOPATHOLOGY(Performed 08/25/2017) Results * DERMATOPATHOLOGY (02/22/2020 12:00 AM CDT) Only the most recent of2 resultswithin the time period is included. Case Report Dermatopathology Report Case: [id number] Authorizing Provider: Terry Mccabe MD Collected: 02/22/2020 12:00 AM Ordering Location: [facility] Lab Received: 02/23/2020 11:26 AM Pathologist: [...] 5x5x3 mm. Jar 0. 0 3:37 PM [facility]ERMAT[facility] Microscopic Description Specimen A. SKIN, right superior medial cheek: Sections show hyperkeratosis, papillomatosis, hypergranulosis, and acanthosis. Inflammatory cells are present within the dermis. These histological findings can be seen in a verruca vulgaris or a seborrheic keratosis. 0 3:37 PM T DERMATOPATHOLOGY LABORATORY Disclaimer An external and internal positive and negative controls are appropriate for the histochemical, immunohistochemical and immunofluorescence stain(s) in this case (if any), except where stated explicitly. The performance characteristics of the stain(s) cited in this report were developed and its performance characteristic determined by the Dermatopathology Laboratory at [facility], directed by Dr. Amadou Joshua. These tests need not be, and therefore are not, approved by the [place] Food and Drug Administration. The tests are used for clinical purposes. Billing Codes Specimen Charges Stain Charges 63565 1 0 3:37 PM CDT DERMATOPATHOLOGY LABORATORY Embedded Images 0 3:37 PM T DERMATOPATHOLOGY LABORATORY Pathology/Cytolog y TISSUE SPECIMEN FROM SKIN / Unknown 02/22/2020 02/23/2020 11:26 AM CDT Terry Mccabe MD LAB - PATHOLOGY/CYTO LOGY ORDERABLES DERMATOPATHOLOGY LABORATORY [facility] - Department of Dermatology [address], [address] [phone]
--- OUTSIDE RECORDS SUMMARY | 2024-07-13 00:14 | XMS_ITS | Data Portability ---
Author Organization [facility] [place] Address [address] [place] [address] Care Team Providers Care Bicycle Messenger Name Role Phone TIM SORIANO Primary Care Provider [phone] Assessment Encounter Date Assessment Date Assessment LastModified by Organization Details LastModified Time 11/07/2021 11/07/2021 Annual gynecological exam performed. Patient will come back in a year unless there are new symptoms. [email or web address] Not available 11/07/2021 16:41:14 01/27/2023 01/27/2023 Annual gynecological exam performed. Patient will come back in a year unless there are new symptoms. Not available 01/27/2023 15:06:22 Plan of Treatment Reminders Order Date Submit Date Provider Last Modified By Organization Details Last Modified Time Details Appointments [facility] 2024 04:15P Castro DRAKE MD Not available Not available Not available Lab hormone panel, serum or plasma 2021 022 [facility] (Lab), [address] [place], [address], 11/14/2021 03:16:34 beta-HCG, quantitat ike, serum or plasma 2021 022 [facility] (Lab), [address] [place], [address], 11/13/2021 04:55:06 Referral None recorded. Procedures None recorded. Surgeries None recorded. Imaging MAMMO, screening , digital, bilateral 2022 023 [place] , [address], [place], [address], 06/03/2023 11:00:33 US, pelvis 2020 021 [email or web address] [place], [address], [place], [address], 03/30/2021 10:46:02 US, transvagi nal 2020 021 [email or web address] [place], [place], [address], 03/30/2021 10:46:02 US, pelvis 2020 021 [email or web address] [place], [place], [address], 07/24/2020 16:56:49 US, transvagi nal 2020 021 LIZ [place], [place], [address], 07/30/2020 11:59:41 Medication Orders None recorded. Patient TargetsNo targets recorded. Patient InstructionsNo instructions recorded. Reason for Referral None Reported. Results Created Date Observation Date Name Description Value Unit Range Abnormal Flag Note LastModifiedBy Organization Detail LastModifiedTime 07/25/1907/24/2020 ca 125, serum Ca 125 11.7 units /mL (based on legal sex) 0-35 Not Available [facility] (Lab) [address], [place], [address], 07/25/2020 14:10:48 07/31/1907/30/2020 US, daisha daigle md interpretati on Not Available [facility] [address], [place], [address], 07/24/2020 11:37:23 11/08/19 22 11/07/2021 IMAGE GUIDE D PAP AND HPV REGAR DLESS image guided Pap, HPV regardless of Pap result SEE RESULT S BELOW CASE REPOR T: Cytol ogy Gynec ologi alex Repor t Case: [id number] Autho meghan steve Provi med: Margie Jefferson, CANDELARIO Santos cted: 11/07 1638 Order ing Locat ion: [place] [facility] Recei lori: 11/08 0339 First Scree n: Clare Norton, CT Speci men: Shekhar barger Pap - Image d, Cervi x STATE MENT OF ADEQU ACY: Satis facto ry for evalu ation Trans forma tion zone compo nent prese nt FINAL DIAGN OSIS: Negat ike for Intra epith elial Lesio n or Byron stevens (NIL) . Elect maryjane mendenhall silvana d by Clare Norton, CT on 2021 at 1:24 PM ----- ----- ----- ----- ----- ----- ----- ----- ----- ----- ----- ----- ----- ----- ----- ----- ----- ---- HPV RESUL TS: HPV mRNA E6/E7 : No HPV mRNA Detec jess NOTE: This high risk HPV mRNA assay detec ts fourt een high- risk HPV types (16, 18, 31, 33, 35, 39, 45, 51, 52, 56, 58, 59, 66, 68) witho ut diffe renti ation . COMME NT: Note: This speci men was revie wed by a Cytot echno logis t and/o r Patho logis t (as indic ated in this repor t) after evalu ation using the Thinp rep Imagi ng Syste m. CLINI ALEX INFOR MATIO N: Menst rual Statu s: LMP (if appli cable ): Clini alex Histo ry/Pr eviou s Pap: Type of Neopl oswaldo (if appli cable ): Signi fican t Clini alex Findi ngs: Other Histo ry: Hormo charity (if appli cable ): PAP EDUCA VANDANA L NOTE: The Pap Test is a scree charbel test with an inher ent false negat ike rate. Liqui d-bas ed sampl ing may decre ase, but will not elimi kaden, false negat ike resul ts. A negat ike resul t does not precl ude the prese nce and/o r devel opmen t of disea se, since the prese nce of abnor mal cells in the sampl e depen ds on the locat ion of the lesio n and sampl ing techn ique. Yamilex nued regul ar scree charbel is the best metho d of cance r preve ntion . If repor jess cytol ogic findi ng do not corre late with physi alex and/o r histo rical findi ngs, furth er inves tigat ion is recom gabe d, as clini amalia warra nted. Not Available [facility] (Lab) [address], [place], [address], 11/12/2021 14:27:33 11/13/19 22 11/12/2021 BHCG, QUANT ITATI VE B-HCG 0.4 mIU/m L This assay was perfo rmed using [employer] n reage nts and test kits. Value s obtai brittney with other assay metho ds or kits canno t be used inter paniagua eably . Refer ence Range s: Non-p regna nt, preme nopau peter women : 0.0-5 .3 mIU/m L Postm enopa usal women : 0.0-7 .0 mIU/m L Debbi l Pregn abiel: Gesta vandana l Age bHCG Conc. - mIU/m L 3 Weeks 5.8 - 71.7 4 Weeks 9.5 - 750 5 Weeks 217-7 138 6 Weeks 158 - 31,79 5 7 Weeks 3,697 - 162,5 63 8 Weeks 32,06 5 - 149,5 71 9 Weeks 63,80 3 - 151,4 10 10 Weeks 46,50 9 - 186,9 77 12 Weeks 27,83 2 - 210,6 12 14 Weeks 13,95 0 - 62,53 0 15 Weeks 12,03 9 - 70,97 1 16 Weeks 9,040 - 56,45 1 17 Weeks 8,175 - 55,86 8 18 Weeks 8,099 - 58,17 6 Not Available [facility] (Lab) [address] [facility], [place], [address], 11/13/2021 04:55:06 11/14/19 22 11/13/2021 FSH, LH, ESTRA DIOL estradiol 22.9 pg/mL This assay was perfo rmed using [employer] reage nts and test kits. Value s obtai brittney with other assay metho ds or kits canno t be used inter paniagua eably . Femal e Estra diol Range s: Folli cular phase 12.4- 233 pg/mL Ovula tion phase 41.0- 398 pg/mL Lutea l phase 22.3- 341 pg/mL Postm enopa usal< 5-138 pg/mL Healt hy Pregn ant Women 1st Trime ster1 54-32 43 pg/mL 2nd Trime ster1 561-2 1280 pg/mL 3rd Trime ster8 525-> 94359 pg/mL Not Available [facility] (Lab) [address] [place], [address], 11/14/2021 03:16:31 11/14/19 22 11/13/2021 FSH, LH, ESTRA DIOL FSH 67.1 mIU/m L This assay was perfo rmed using [employer] reage nts and test kits. Value s obtai brittney with other assay metho ds or kits canno t be used inter paniagua eably . Femal es Folli cular : 3.5-1 2.5 mIU/m L Ovula tion: 4.7-2 1.5 mIU/m L Lutea l: 1.7-7 .7 mIU/m L Postm enopa use: 25.8- 134.8 mIU/m L Not Available [facility] (Lab) [address] [place], [address], 11/14/2021 03:16:31 11/14/19 22 11/13/2021 FSH, LH, ESTRA DIOL LH 34.1 mIU/m L This assay was perfo rmed using [employer] reage nts and test kits. Value s obtai brittney with other assay metho ds or kits canno t be used inter paniagua eably . Femal es Mid-F ollic ular: 2.4-1 2.6 mIU/m L Mid-C ycle: 14.0- 95.6 mIU/m L Mid-L uteal : 1.0-1 1.4 mIU/m L Postm enopa use: 7.7-5 8.5 mIU/m L Not Available [facility] (Lab) [address], [place], [address], 11/14/2021 03:16:31 06/28/19 21 06/28/2020 MAMMO , scree charbel, bilat eral No observ ation record ed. [facility] [address], [place], [address], 07/02/2020 16:39:02 07/25/19 US, pelvi s No observ ation record ed. rosario [address] [facility], [place], [address], 07/25/2020 13:34:52 03/29/20 21 03/29/2021 US, pelvi s No observ ation record ed. [email or web address] [place] [address], [place], [address], 03/29/2021 17:12:18 03/29/20 21 03/29/2021 US, trans mike al No observ ation record ed. [email or web address] [place] [address], [place], [address], 03/29/2021 17:12:07 1103/29/2021 US, pelvi s No observ ation record ed. LIZ [address], [place], [address], 04/08/2021 19:20:52 06/23/19 24 06/12/2023 MAMMO , scree charbel, digit al, bilat eral No observ ation record ed. [email or web address] [address] , [place], [address], 07/01/2023 17:32:14 Result Notes None recorded. Problems Name Problem SNOMED Code Status Onset Date Resolution Date Notes Provider Name and Address Organization Details Recorded Time Disorder of breast 21705796 Active 2018 Disorder of breast, unspecifie d;Recorded Elsewhere: No Locatio n: [facility] rce: EHR Chroni c: N Practice ID: 0001 Billa ble Time: 11:30:00 AM Not Available [facility] 0 18:40:15 Vaginitis and vulvovagi nitis Active 2014 Vaginitis; Recorded Elsewhere: No Locatio n: [facility] rce: EHR Chroni c: N Practice ID: 0001 Billa ble Time: 01:00:00 PM Not Available [facility] 0 18:40:15 Finding of pattern of menstrual cycle 033583339 Active 2015 Excessive and frequent menstruati on with irregular cycle;Candido rded Elsewhere: No Locatio n: [facility] rce: EHR Chroni c: N Practice ID: 0001 Billa ble Time: 09:30:00 AM Not Available [facility] 0 18:40:15 Cyst of ovary 30938860 Active 2015 Unspecifie d ovarian cyst, right side;Recor ded Elsewhere: No Locatio n: [facility] rce: EHR Chroni c: N Practice ID: 0001 Billa ble Time: 11:00:00 AM Not Available [facility] 0 18:40:15 Screening for malignant neoplasm of cervix Active 2016 Encounter for screening for malignant neoplasm of cervix;Rec orded Elsewhere: No Locatio n: [facility] rce: EHR Chroni c: N Practice ID: 0001 Billa ble Time: 10:45:00 AM Not Available [facility] 0 18:40:15 Lymphaden opathy 16747317 Active 2015 Enlarged lymph nodes, unspecifie d;Recorded Elsewhere: No Locatio n: [facility] rce: EHR Chroni c: N Practice ID: 0001 Billa ble Time: 01:00:00 PM Not Available [facility] 0 18:40:15 Dysfuncti onal uterine bleeding Active 2014 Unspecifie d disorders of menstruati on and other abnormal bleeding from female genital tract;Candido rded Elsewhere: No Locatio n: [facility] rce: EHR Chroni c: N Practice ID: 0001 Billa ble Time: 11:00:00 AM Not Available [facility] 0 18:40:15 Insertion of intrauter ine contracep tive device Active 2014 INSERTION OF IUD;Record ed Elsewhere: No Locatio n: [facility] rce: EHR Chroni c: N Practice ID: 0001 Billa ble Time: 01:15:00 PM Not Available [facility] 0 18:40:15 Menstruat ion finding Active 2014 Menorrhagi a;Recorded Elsewhere: No Locatio n: [facility] rce: EHR Chroni c: N Practice ID: 0001 Billa ble Time: 10:15:00 AM Not Available [facility] 0 18:40:15 Malaise and fatigue 226499187 Active 2013 Fatigue / Malaise;Re corded Elsewhere: No Locatio n: [facility] rce: EHR Chroni c: N Practice ID: 0001 Billa ble Time: 10:15:00 AM Not Available [facility] 0 18:40:15 Screening for malignant neoplasm of rectum Active 2016 Screening for malignant neoplasms of the rectum;Rec orded Elsewhere: No Locatio n: [facility] rce: EHR Chroni c: N Practice ID: 0001 Billa ble Time: 10:45:00 AM Not Available [facility] 0 18:40:[address] Concept Active 2018 Encntr for general adult medical exam w/o abnormal findings;R ecorded Elsewhere: No Locatio n: [facility] rce: EHR Chroni c: N Practice ID: 0001 Billa ble Time: 11:30:00 AM Not Available [facility] 0 18:40:16 test negative 080577088 Active 2014 examinatio n or test, negative result;Rec orded Elsewhere: No Locatio n: [facility] rce: EHR Chroni c: N Practice ID: 0001 Billa ble Time: 01:15:00 PM Not Available [facility] 0 18:[facility]:[address] Concept Active 2015 Encntr for electronic repair troubleshooter exam (general) (routine) w/o abn findings;R ecorded Elsewhere: No Locatio n: [facility] rce: EHR Chroni c: N Practice ID: 0001 Billa ble Time: 01:00:00 PM Not Available [facility] 0 18:40:16 Mechanica l complicat ion of intrauter ine contracep tive device 981240850 Active 2014 Mechanical complicati on due to intrauteri ne contracept ike device;Rec orded Elsewhere: No Locatio n: [facility] rce: EHR Chroni c: N Practice ID: 0001 Billa ble Time: 03:00:00 PM Not Available [facility] 0 18:40:16 Irregular intermens trual bleeding 77098816 Active 2014 Intermenst rual bleeding;R ecorded Elsewhere: No Locatio n: [facility] rce: EHR Chroni c: N Practice ID: 0001 Billa ble Time: 03:30:00 PM Not Available [facility] 0 18:40:16 Proteinur ia 42691404 Active 2011 Proteinuri a;Recorded Elsewhere: No Locatio n: [facility] rce: EHR Chroni c: N Practice ID: 0001 Billa ble Time: 11:00:00 AM Not Available [facility] 0 18:40:16 Family planning surveilla nce Active 2010 Surveillan ce of other contracept ike method;Rec orded Elsewhere: No Locatio n: [facility] rce: EHR Chroni c: N Practice ID: 0001 Billa ble Time: 10:45:00 AM Not Available [facility] 0 18:40:17 Specializ ed medical examinati on Active 2010 Gynecologi alex Examinatio n;Recorded Elsewhere: No Locatio n: [facility] rce: EHR Chroni c: N Practice ID: 0001 Billa ble Time: 11:00:00 AM Not Available [facility] 0 18:40:17 Benign essential hypertens ion 7159935 Active 2014 Hypertensi on, Benign;Rec orded Elsewhere: No Locatio n: [facility] rce: EHR Chroni c: N Practice ID: 0001 Billa ble Time: 10:15:00 AM Not Available [facility] 0 18:40:17 Uses IUD (intraute rine device) contracep tion 445814214 Active 2014 Surveillan ce of intrauteri ne contracept ike device;Rec orded Elsewhere: No Locatio n: [facility] rce: EHR Chroni c: N Practice ID: 0001 Billa ble Time: 11:00:00 AM Not Available [facility] 0 18:40:17 Obesity 922219017 Active 2014 Obesity;Re corded Elsewhere: No Locatio n: [facility] rce: EHR Chroni c: N Practice ID: 0001 Billa ble Time: 10:15:00 AM Not Available [facility] 0 18:40:17 Alopecia 99804894 Active 2015 Alopecia;R ecorded Elsewhere: No Locatio n: [facility] rce: EHR Chroni c: N Practice ID: 0001 Billa ble Time: 01:00:00 PM Not Available [facility] 0 18:40:17 Headache 64806797 Active 2013 Headache;R ecorded Elsewhere: No Locatio n: [facility] rce: EHR Chroni c: N Practice ID: 0001 Luis ble Time: 10:15:00 AM Not Available [facility] 0 18:40:18 Problem Notes None recorded. Procedures Surgical History Date Name Laterality Status Provider Name and Address Organization Details Recorded Time 3 Date of Last Mammogram completed Yana Duron [facility] 01/27/2023 15:08:31 2 IUD Removal completed LIZ Leger [address], [place], [address], [facility] 11/14/2021 08:51:58 2 IUD Insertion completed LIZ Leger [address], [place], [address], [facility] 11/14/2021 08:53:15 2 Date of Last Pap Smear completed Yana Duron [facility] 01/27/2023 15:07:44 Imaging Results Imaging Date Name Status LastModified by Organization Details LastModified Time 06/28/2020 MAMMO, screening, bilateral completed [facility] [address], [place], [address], 07/02/2020 16:39:02 07/24/2020 US, pelvis completed layjoao Natalie [address], [place], [address], 07/25/2020 13:34:52 03/29/2021 US, pelvis completed sascha [place] [facility] [address], [place], [address], 03/29/2021 17:12:18 03/29/2021 US, transvaginal completed sascha hernandez [address], [place], [address], 03/29/2021 17:12:07 03/29/2021 [facility] [address], [place], [address], 04/08/2021 19:20:52 06/12/2023 MAMMO, screening, digital, bilateral completed [email or web address] , [place], [address], 07/01/2023 17:32:14 Procedure Notes None recorded. Medical Equipment None Reported. Allergies Allergen ID Allergen Name Allergen Category Reaction Reaction Severity Criticality Documentation Date Start Date Code Code System Note Provider Name and Address Organization Details Recorded Time 34662 morphine medicatio n Not available Not available Not available 05/04/2020 7052 RxNorm Comme nt: [facility]at [facility]; Not Available [facility] 14:24:27 Medications Name Sig Start Date Stop Date Status Note LastModified by Organization Details LastModified Time amoxicill in 500 mg capsule 07/24 completed Not Available Not Available Not Available Augmentin 875 mg-125 mg tablet take 1 tablet by oral route every 12 hours 09/03 completed Prescrib ed Elsewher e: No Locat ion: [facility] odify By: smcnoy Ev ballesteros DateTime : 08/03/19 16 01:00:00 PM Not Available Not Available Not Available prednison e 10 mg tablet TAKE 4 TABLETS DAYS 1-3, TAKE 3 TABLETS DAYS 4-6, TAKE 2 TABLETS DAYS 7-9, TAKE 1 TABLET DAYS 10-14 01/27 completed Not Available Not Available Not Available sumatript an 100 mg tablet take 1 tablet by oral route once with fluids as early as possible after the onset of a migraine attack;m ay repeat after 2 hours if headache returns, not to exceed 200mgin 24hrs 07/24 completed Prescrib ed Elsewher e: Yes Loca tion: [facility] odify By: [email or web address] z Encoun ter DateTime : 08/19/19 17 10:45:00 AM Not Available Not Available Not Available rizatript an 10 mg tablet TAKE 1 TABLET (10 MG TOTAL) BY MOUTH ONCE NEEDED FOR MIGRAINE FOR UP TO 1 DOSE NO MORE THAN 2 IN 24 HOUR PERIOD 01/27 completed Not Available Not Available Not Available Zithromax Z-Haja 250 mg tablet take 2 tablet by oral route every day for 1 day then 1 tablet (250 mg) by oral route once daily for 4 days 12/16 completed Prescrib ed Elsewher e: No Locat ion: [facility] odify By: suri jeronimo DateTime : 12/13/19 15 01:14:41 PM Not Available Not Available Not Available Diflucan 150 mg tablet take 1 tablet by oral route once 08/02 completed Prescrib ed Elsewher e: No Locat ion: [facility] odify By: smccharly ballesteros DateTime : 12/13/19 15 01:14:41 PM Not Available Not Available Not Available sumatript an 50 mg tablet take 2 tablet by oral route once with fluids as early as possible after the onset of a migraine attack;m ay repeat after 2 hours if headache returns, not to exceed 200mgin 24hrs 08/18 completed Prescrib ed Elsewher e: No Locat ion: [facility] odify By: [email or web address] z Encoun ter DateTime : 06/23/19 15 10:15:00 AM Not Available Not Available Not Available doxycycli ne monohydra te 100 mg tablet take 1 tablet by oral route 2 times every day for 10 days 09/21 completed Prescrib ed Elsewher e: No Locat ion: [facility] odify By: tgingric h Encoun ter DateTime : 09/13/19 16 10:15:00 AM Not Available Not Available Not Available tramadol 50 mg tablet 07/24 completed Not Available Not Available Not Available triamcino lone acetonide 0.1 % topical cream APPLY TOPICALL Y 3 (THREE) TIMES A DAY FOR 10 DAYS 01/27 completed Not Available Not Available Not Available Microgest in FE 06/06 (28) 1 mg-20 mcg (21)/75 mg (7) tablet take 1 tablet by oral route every day 11/07 completed Prescrib ed Elsewher e: No Locat ion: Dalton hernandez [facility] odify By: zina francoisunter DateTime : 06/14/19 15 11:40:58 AM Not Available Not Available Not Available rizatript an 10 mg disintegr ating tablet TAKE 1 TABLET (10 MG TOTAL) BY MOUTH EVERY 2 (TWO) HOURS NEEDED FOR MIGRAINE MAY REPEAT IN 2 HOURS IF UNRESOLV ED. DO NOT EXCEED 30 MG IN 24 HOURS active Not Available Not Available No t Available ergocalci ferol (vitamin D2) 1,250 mcg (50,000 unit) capsule take 1 capsule by oral route every week 01/27 completed Not Available Not Available Not Available methylpre dnisolone 4 mg tablets in a dose pack TAKE TABLETS BY MOUTH BY DIRECTIO NS ON CARD IN BOX (TAKE WITH FOOD) 01/27 completed Not Available Not Available Not Available topiramat e 100 mg tablet take 2 tablet by oral route 2 times every day 07/24 completed Prescrib ed Elsewher e: Yes Loca tion: Dalton hernandez [facility] odify By: [email or web address] z Encoun ter DateTime : 08/19/19 17 10:45:00 AM Not Available Not Available Not Available Ambien 5 mg tablet take 2 tablet by oral route every day at bedtime 06/10 completed Prescrib ed Elsewher e: Yes Loca tion: [facility] odify By: esther reynoldsi Virio unter DateTime : 04/02/20 12 11:00:00 AM Not Available Not Available Not Available topiramat e 50 mg tablet TAKE 1 TABLET (50 MG TOTAL) BY MOUTH 2 (TWO) TIMES A DAY active Not Available Not Available No t Available Clindesse 2 % vaginal cream,ext ended release insert by Vaginal route for 1 bedtime 12/04 completed Prescrib ed Elsewher e: No Locat ion: [facility] odify By: randy Plata nter DateTime : 12/05/19 15 01:00:00 PM Not Available Not Available Not Available Loestrin 24 Fe 1 mg-20 mcg (24)/75 mg (4) tablet take 1 tablet by oral route every day 06/10 completed Prescrib ed Elsewher e: No Locat ion: Dalton hernandez [facility] odify By: esther hartley DateTime : 09/15/19 13 02:42:18 PM Not Available Not Available Not Available clindamyc in 1.2 % (1 % base)-leydi zoyl peroxide 5 % topical gel 07/24 completed Not Available Not Available Not Available Tilia Fe 1-20 (5)/1-30( 7)/1mg-35 mcg(9) tablet take 1 tablet by oral route every day for 28 days 04/02 completed Prescrib ed Elsewher e: No Locat ion: Jay david [facility] odify By: manan jeronimo DateTime : 03/09/20 12 11:30:00 AM Not Available Not Available Not Available Lo Loestrin Fe 1 mg-10 mcg (24)/10 mcg (2) tablet take 1 tablet by oral route every day 11/10 completed Prescrib ed Elsewher e: No Locat ion: [facility] odify By: cecilio watkins DateTime : 04/09/20 11 10:45:00 AM Not Available Not Available Not Available Vitals Date Recorded Body height Body mass index (BMI) Body weight Systolic blood pressure Diastolic blood pressure Provider Name and Address Organization Details Last Updated DateTime 07/24/2020 157.48 cm 41.2 kg/m2 232041.2 8 g 133 mm[Hg] 88 mm[Hg] Crystal Cohn [facility] 1 11:39:54 Date Recorded Body height Body mass index (BMI) Body weight Systolic blood pressure Diastolic blood pressure Provider Name and Address Organization Details Last Updated DateTime 11/07/2021 160.02 cm 42.3 kg/m2 225922.1 4 g 138 mm[Hg] 87 mm[Hg] Chasity Freeman [facility] 2 16:43:11 Date Recorded Body height Body mass index (BMI) Body weight Systolic blood pressure Diastolic blood pressure Provider Name and Address Organization Details Last Updated DateTime 11/13/2021 160.02 cm 42.2 kg/m2 990460.9 8 g 121 mm[Hg] 87 mm[Hg] Chasity Freeman [facility] 16:51:40 Date Recorded Body height Body mass index (BMI) Body weight Provider Name and Address Organization Details Last Updated DateTime 01/27/2023 160.02 cm 42.9 kg/m2 532060.35 g Yanasally Reicher [facility] 01/27/2023 15:06:37 Date Recorded Systolic blood pressure Diastolic blood pressure Provider Name and Address Organization Details Last Updated DateTime 01/27/2023 122 mm[Hg] 80 mm[Hg] Marcella Cummings, [facility]- [address], [place], [address], [facility] 01/27/2023 15:12:06 Social History Question Answer Notes LastModified by Organizat ion Details LastModified Time Tobacco Smoking Status Never Smoker Yana Duron null, [facility] 01/27/2023 15:07:01 Do You Have An Advance Directive? No Information n ot available 01/27/2023 What Is Your Level Of Alcohol Consumption? None Information not available 01/27/2023 Are You Blind Or Do You Have Difficulty Seeing? No Information n ot available 07/24/2020 What Is Your Level Of Caffeine Consumption? Moderate Information not available 01/27/2023 How Much Tobacco Do You Chew? None Information not available 07/24/2020 In The 14 Days Before Symptom Onset, Have You Had Close Contact With A Laboratory-confirm ed COVID-19 While That Case Was Ill? No Information n ot available 07/24/2020 In The 14 Days Before Symptom Onset, Have You Had Close Contact With A Person Who Is Under Investigation For COVID-19 While That Person Was Ill? No Information not available 07/24/2020 Have You Been To An Area Known To Be High Risk For COVID-19? No Information not available 07/24/2020 Are You Deaf Or Do You Have Serious Difficulty Hearing? No Information not available 07/24/2020 What Type Of Diet Are You Following? REGULAR Information n ot available 07/24/2020 What Is The Highest Grade Or Level Of School You Have Completed Or The Highest Degree You Have Received? 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 No Information not available 07/24/2020 Do You Use Protection During Sex? No Information not available 07/24/2020 Do You Use Your Seat Belt Or Car Seat Routinely? Yes Information not available 07/24/2020 Do You Have Smoke And Carbon Monoxide Detectors In Your Home? Yes Information not available 07/24/2020 How Much Tobacco Do You Smoke? No Information not available 07/24/2020 Do You Feel Stressed (tense, Restless, Nervous, Or Anxious, Or Unable To Sleep At Night)? [id number] Information not available 07/24/2020 Do You Use Any Illicit Or Recreational Drugs? No Information not available 07/24/2020 Do You Use Sunscreen Routinely? Yes Information not available 07/24/2020 Have You Used IV Drugs? No Information not available 07/24/2020 Sex: Unknown Functional Status Question Answer Note LastModified by Organizat ion Details LastModified Time Do you have difficulty walking or climbing stairs? No Information not available 01/27/2023 Are you able to walk? YESWOREST Information not available 07/24/2020 Are you able to care for yourself? Yes Information not available 01/27/2023 Do you have difficulty dressing or bathing? No Information not available 01/27/2023 What is your exercise level? Occasional Information not available 07/24/2020 Mental Status None recorded. Family History Nothing Reported Notes:Father: Diabetes melli tus, Cancer, pancreatic Paternal uncle: Cancer, bladder Sister: Crohns Disease, Thyroid disease, Asthma, Breast age 50 Medical History Condition Response Allergies (Food, seasonal, environmental ) N Other N Drug/Latex Allergies/Reactions N Breast Cancer N Blood Transfusion N Lung Disease N Dermatologic Disorders N Defects or Inherited Disease N Breast Problem N Gestational Diabetes N Hematologic disorders N Anesthesia Complications N History of STI N Deep Vein Thrombosis N Polycystic ovary syndrome N Anxiety Disorder N Autoimmune disease N Arthritis N Polyps N Infertility N Acid Reflux (GERD) N History of abnormal pap Y Cancer N Varicosities N Stroke N Neurologic/Epilepsy N Endometriosis N High Cholesterol N Fibromyalgia N Headaches Y Kidney Disease N Heart Problems N Thyroid Problems N Kidney or Bladder Problems N GI Problems N Eating Disorder N Anemia N Art (IVF or FET) N Psychiatric Illness N Ovarian Cancer N Diabetes N Pulmonary (TB, Asthma) N Hepatitis/Liver Disease N No Past Medical History N Eczema N Urinary Tract Infection N Abuse/Domestic Violence N Asthma N Trauma/Violence N Depression/ depression N Heart Disease N Pre-Eclampsia N Hypertension N Osteoporosis N Thrombophilias N Gynecological History Statement/Question Response Abnormal Pap Y Date of Last Mammogram 07/16/2022 On BCP's at Conception? N Was last menstrual period normal N STIs/STDs N HPV Vaccine N Current Control Method Menopause Age at First Child 20 Are cycles usually normal N Sexually Active? N Menses Monthly N Age of first menstrual cycle 13 Date of Last Pap Smear 11/07/2021 Sexual Problems? N Desired Control Method None LMP Unknown Obstetrics History GPAL:G 4 P 0 0 0 0 Past Encounters Encounter ID Performer Location Encounter Start Date Encounter Closed Date Diagnosis/Indication Diagnosis SNOMED-CT Code Diagnosis ICD10 Code Diagnosis Note [id number] [facility] [address] [address] 06/26/2020 10:50:42 06/26/2020 12:14:42 Gynecologic examination 40610857 Z01.419 Suggested Calcium with Vitamin D 1200-1500m g daily. Patient advised to get an annual flu shot in the fall and she could obtain at [facility] or [facility] take care clinic. Also to obtain TDap vaccinatio n if you have not had one in the last 10 years. Recommend yearly mammograms . Encouraged monthly self breast exams. Encourage safe sexual practices, to use condoms and limit partners if not already in a monogamous relationsh ip. Engage in daily exercise of low impact aerobic exercise 45-60 minutes 4-5 times weekly. Avoid tobacco and illicit drugs as well as using moderation with alcohol intake less than 1-2 8 oz beverages daily. This lifestyle behavior pattern will lead to less health conditions and longer life span. If BMI greater than 25 weight watchers or dietary consult advised. All questions have been answered. Patient appears to understand informatio n, but if you have any questions please call or respond to this email. Mammo ordered Colon-n/a Dexa-n/a Pap/hpv 2017 wnl, pap 2019 wnl Monogamous relationsh ip Norm pap hx Opts to defer pap this year per asccp unless otherwise indicated. Family his tory of malignant neoplasm of breast in first degree relative [id number] Z80.3 Genetic testing to be completed next visit. Secondary dysmenorrhea [id number] N94.5 New onset of dysmenorrh ea random. Updated TVUS to be scheduled which will also ensure no issues IUD as this is to be removed & reinserted as well. Will discuss & set up IUD removal/in sertion at upcoming visit. [id number] [facility] [address],[place] [address] 07/24/2020 10:55:10 07/31/2020 18:39:40 Cyst of ovary [id number] N83.209 TVSU reviewed. We agreed to r/p US is 6-8wks. Still having menses. Time spent in visit is a total of 15 mins with at least 50% of visit consisting of counseling and review of plan of care. Family his tory of malignant neoplasm of ovary in first degree relative [id number] 106 Z80.41 We previously discussed genetic testing KEVIN and patient would like to pursue today. [id number] Lindsey Guzman [facility] [address],[place] [address] 07/24/2020 10:54:58 07/24/2020 12:05:43 Dysmenorrhea 254955195 N94.6 N83.291 N83.292 [id number] Norah Walker [facility] [address],[place] [address] 03/29/2021 16:33:25 03/30/2021 10:46:02 Cyst of ovary [id number] N83.209 [id number] Margie Jefferson [facility] [address] [address] 11/07/2021 16:28:20 11/08/2021 11:47:00 Gynecologic examination 54275512 Z01.419 Take Calcium with Vitamin D 12-1500mg daily. Do monthly self breast exams. It is advised to get annual flu shot in the fall and she could obtain at [facility] or [facility] clinic. If you haven't received the Tdap vaccine in the last 10 years you should obtain one as well. Have mammogram yearly, bone density every 2-3 years and colonoscop y every 5-10 years depending on findings and history. Engage in daily exercise of low impact aerobic exercise 45-60 minutes 4-5 times weekly. Avoid tobacco and illicit drugs as well as using moderation with alcohol intake less than 1-2 8 oz beverages daily. This lifestyle behavior pattern will lead to less health conditions and longer life span. If BMI greater than 25 weight watchers or dietary consult advised. Questions have been answered. Patient appears to understand instructio ns, but if you have any further questions call or respond to this email Conchita IUD - inserted 07/24/2014 . Currently . Desires removal and re-inserti on. She is still having menses every 1-3 months with IUD. We discussed removal/re -insert vs checking labs for menopausal status. She would like to have it re-inserte d and would not like lab work at this time. She will need to abstain for 2 weeks (patient is not currently sexually active), then have a bhCG done the day prior to insertion. RTC for bhcg and then removal re-insert. No hx of abnormal papsPap done todayMammo gram UTD with PCPColonos copy, has this scheduledU TD with PCP routine labsRTC in 1 year for MARLON Mendezt ion care management [id number] Z30.9 [id number] Margie Jefferson [facility] [address] [address] 11/13/2021 16:21:44 12/02/2021 16:23:47 Contraception care management [id number] Z30.9 Removal of intrauterine device 27575013 Z30.432 IUD removed in normal fashion without any immediate complicati onNew Mirena IUD unsuccessf ul at being placed due to cervical stenosis, likely due to ageDiscuss ed this with patient, we agreed to have her hormone levels checked for menopausal status. If she is within menopausal range will hold off on second IUD attempt and have her keep a menstrual diary. We discussed possible cramping and bleeding over the next few days. Patient informed that return to fertility is immediate. Patient encouraged to take PNV daily. Insertion of intrauterine contraceptive device [id number] Z30.430 [id number] Marcella Cummings , [facility] [address] [address] 01/27/2023 14:55:16 01/27/2023 15:48:18 Gynecologic examination [id number] Z01.419 Suggested Calcium with Vitamin D 1200-1500m g daily. Patient advised to get an annual flu shot in the fall and she could obtain at [facility] or [facility] clinic. Also to obtain TDap vaccinatio n if you have not had one in the last 10 years. Recommend yearly mammograms . Encouraged monthly self breast exams. Encourage safe sexual practices, to use condoms and limit partners if not already in a monogamous relationsh ip. Engage in daily exercise of low impact aerobic exercise 45-60 minutes 4-5 times weekly. Avoid tobacco and illicit drugs as well as using moderation with alcohol intake less than 1-2 8 oz beverages daily. This lifestyle behavior pattern will lead to less health conditions and longer life span. If BMI greater than 25 weight watchers or dietary consult advised. All questions have been answered. Patient appears to understand informatio n, but if you have any questions please call or respond to this email. Pap/hpv USPSTF recommends against screening for cervical cancer in women older than 65yo, those who've had a hysterecto my for non-cancer indication s, & who have had adequate prior screening & are not otherwise at high risk for cervical cancer. STD Screen declinedGe netic Screen discussedC olon Screen PCPDexa Screen naRoutine Labs PCP Screening mammography 24 [id number] Z12.31 Health Concerns Section Related Observation LastModified by Organization Detai ls LastModified Time None Recorded Concern Status LastModified by Organization Details LastModified Time None Recorded Advance Directives Directive N: Payers Encounter Date Sequence Insurance Name Policy Number Policy Womack Covered Member ID Womack Member ID Guarantor Name 07/24/2020 1 [facility] [id number] Rosalia Daigle Sunenhauser [id number] Rosalia S Witiffanyenhauser 03/29/2021 1 [facility] ON OR AFTER 11/15/20 (MEDICAID REPLACEMENT - HMO) Rosalia S Wickenhauser [id number] Rosalia S Wickenhauser 11/07/2021 1 [facility] ON OR AFTER 11/15/20 (MEDICAID REPLACEMENT - HMO) Rosalia Daigle Wickenhauser [id number] Rosalia Daigle Wickenhauser 11/13/2021 1 [facility] ON OR AFTER 11/15/20 (MEDICAID REPLACEMENT - HMO) Rosalia S Wickenhauser [id number] Rosalia S Wickenhauser 01/27/2023 1 [facility] ON OR AFTER 11/15/20 (MEDICAID REPLACEMENT - HMO) Rosalia Daigle Wickenhauser [id number] Rosalia S Wickenhauser Notes Date Note Type Note Provider Name and Address Organization Details Recorded Time 07/24/2020 text/html Here for TVUS Fo llow up for left sided pelvic pain. LIZ Edmonds- [address], [place], [address], [facility] 08/05/2020 18:50:53 11/07/2021 text/html Annual GYNReport ed bypatient.Menstrual cycle:Normal menses Urinary symptoms:No hematuria; No incontinence Vulva:No genital lesion Vagina:Normal vaginal discharge Breast:No breast pain; No breast lump; No nipple discharge Current Contraception:Satisfi ed with current contraception; Intrauterine device (iud) Sexual complaints:No sexual complaints; No pain during intercourse; Normal libido Menopausal Symptoms:No menopausal symptoms; Normal vaginal lubrication Psychological symptoms:No depression; No anxiety; No PMDD Preventive measures:Encourage self breast examination; Encourage regular exercise; Encourage no tobacco use; Encourage regular mammograms starting age 40 LIZ Leger [address], [place], [address], [facility] 11/08/2021 09:08:35 11/13/2021 text/html Patient presents for IUD removal / insertionPatient having light menses every 3 monthsMirena IUD inserted on 07/2014She desires removal and reinsertion. She declines hormone testing for menopausal status at this time.Has not been sexually active in 2 monthsbhCG (-)Urine hcg (-) today LIZ Leger [address], [place], [address], [facility] 11/14/2021 08:55:44 01/27/2023 text/html Annual GYNReport ed bypatient.History:no gynecologic complaints Menstrual cycle:Normal menses Urinary symptoms:No hematuria; No incontinence Vulva:No genital lesion Vagina:Normal vaginal discharge Breast:No breast pain; No breast lump; No nipple discharge Current Contraception:Satisfi ed with current contraception; Condoms Sexual complaints:No sexual complaints; No pain during intercourse; Normal libido Menopausal Symptoms:No menopausal symptoms; Normal vaginal lubrication Psychological symptoms:No depression; No anxiety; No PMDD Preventive measures:Encourage self breast examination; Encourage regular exercise; Encourage no tobacco use; Encourage regular mammograms starting age 40; Mammogram performed within the past year; Needs to schedule colonoscopy LIZ Edmonds- [address], [place], [address], [facility] 01/27/2023 15:24:09 OBGyn Episode Ob Episode Information Episode Created Date Number of Fetuses Patient Bloodtype Patient rh Status Prepregnancy Weight lbs Domestic Partner Domestic Partner Phone Father Name Custody Officer Status 06/22/19 21 1 CLOSED Fetus Data First Name Last Name Admitted to NICU Weight (g) Sex Living Outcome Pediatric Complications Fetus ID Race Codes Race Delivery Type [id number] Al Calculation Initial Al Date Initial Exam Date Initial Exam Provider Initial Ultrasound Date Last Menstrual Period Date Ultra Sound Weeks Gestation 0 Eighteen To Twenty Week Al Update Ultra Sound Date Fundal Height At Umbil Quickening Date Ultra Sound Latest Weeks Gestation Final Al Confirmed By Final Al Confirmed Date Final Al Date Ultra Sound Latest Days Gestation 0 0 Menstrual History Last Menstrual Date Menses Monthly On Bcp Conception Prior Menses Frequency Hcg Plus Date Menarche Onset Age Delivery Information Delivery Date Delivery Type Labor Anesthesia Weeks Gestation Incision Type Labor Labor Length Hrs Delivered By Post Complications Tubal Sterilization Discharge Date Comments 2 Discharge Information Feeding Method Contraceptive Method Maternal HG B and HCT Levels Ob Episode Information Episode Created Date Number of Fetuses Patient Bloodtype Patient rh Status Prepregnancy Weight lbs Domestic Partner Domestic Partner Phone Father Name Custody Officer Status 06/22/19 21 1 CLOSED Fetus Data First Name Last Name Admitted to NICU Weight (g) Sex Living Outcome Pediatric Complications Fetus ID Race Codes Race Delivery Type [id number] Al Calculation Initial Al Date Initial Exam Date Initial Exam Provider Initial Ultrasound Date Last Menstrual Period Date Ultra Sound Weeks Gestation 0 Eighteen To Twenty Week Al Update Ultra Sound Date Fundal Height At Umbil Quickening Date Ultra Sound Latest Weeks Gestation Final Al Confirmed By Final Al Confirmed Date Final Al Date Ultra Sound Latest Days Gestation 0 0 Menstrual History Last Menstrual Date Menses Monthly On Bcp Conception Prior Menses Frequency Hcg Plus Date Menarche Onset Age Delivery Information Delivery Date Delivery Type Labor Anesthesia Weeks Gestation Incision Type Labor Labor Length Hrs Delivered By Post Complications Tubal Sterilization Discharge Date Comments 7 Discharge Information Feeding Method Contraceptive Method Maternal HG B and HCT Levels Ob Episode Information Episode Created Date Number of Fetuses Patient Bloodtype Patient rh Status Prepregnancy Weight lbs Domestic Partner Domestic Partner Phone Father Name Custody Officer Status 06/22/19 21 1 CLOSED Fetus Data First Name Last Name Admitted to NICU Weight (g) Sex Living Outcome Pediatric Complications Fetus ID Race Codes Race Delivery Type 7713 Al Calculation Initial Al Date Initial Exam Date Initial Exam Provider Initial Ultrasound Date Last Menstrual Period Date Ultra Sound Weeks Gestation 0 Eighteen To Twenty Week Al Update Ultra Sound Date Fundal Height At Umbil Quickening Date Ultra Sound Latest Weeks Gestation Final Al Confirmed By Final Al Confirmed Date Final Al Date Ultra Sound Latest Days Gestation 0 0 Menstrual History Last Menstrual Date Menses Monthly On Bcp Conception Prior Menses Frequency Hcg Plus Date Menarche Onset Age Delivery Information Delivery Date Delivery Type Labor Anesthesia Weeks Gestation Incision Type Labor Labor Length Hrs Delivered By Post Complications Tubal Sterilization Discharge Date Comments 4 Discharge Information Feeding Method Contraceptive Method Maternal HG B and HCT Levels Ob Episode Information Episode Created Date Number of Fetuses Patient Bloodtype Patient rh Status Prepregnancy Weight lbs Domestic Partner Domestic Partner Phone Father Name Custody Officer Status 06/22/19 21 1 CLOSED Fetus Data First Name Last Name Admitted to NICU Weight (g) Sex Living Outcome Pediatric Complications Fetus ID Race Codes Race Delivery Type 7712 Al Calculation Initial Al Date Initial Exam Date Initial Exam Provider Initial Ultrasound Date Last Menstrual Period Date Ultra Sound Weeks Gestation 0 Eighteen To Twenty Week Al Update Ultra Sound Date Fundal Height At Umbil Quickening Date Ultra Sound Latest Weeks Gestation Final Al Confirmed By Final Al Confirmed Date Final Al Date Ultra Sound Latest Days Gestation 0 0 Menstrual History Last Menstrual Date Menses Monthly On Bcp Conception Prior Menses Frequency Hcg Plus Date Menarche Onset Age Delivery Information Delivery Date Delivery Type Labor Anesthesia Weeks Gestation Incision Type Labor Labor Length Hrs Delivered By Post Complications Tubal Sterilization Discharge Date Comments 2 Discharge Information Feeding Method Contraceptive Method Maternal HG B and HCT Levels
--- OUTSIDE RECORDS SUMMARY | 2024-07-13 00:14 | XMS_ITS | Referral Summary ---
Author Organization [facility] Address [address] [place] [address] Care Team Providers Care Human Resources Safety Manager Name Role Phone Unavailable Primary Care Provider Unavailabl e Source Comments [facility],non-owned Affiliates and Associated Physician Practices is amultiple site organization consisting of ambulatory clinics and hospital sitesin [place], [place], [place] and [place]. This disclosure is being madepursuant to the Care Everywhere program and may not contain all information available regarding this patient. Last updated 18.[facility] [employer] Social History Tobacco Use Types Packs/Day Years Used Date Smoking Tobacco: Never Assessed Sex and Gender Information Value Date Recorded Sex Assigned at Not on file Gender Identity Not on file Sexual Orientation Not on file Plan of Treatment Not on file
--- OUTSIDE RECORDS SUMMARY | 2024-07-13 00:14 | XMS_ITS | Clinical Summary ---
Author Organization [facility] Address [address] [place] [address] Care Team Providers Care Template Clerk Name Role Phone Unavailable Primary Care Provider Unavailabl e Source Comments [facility],non-owned Affiliates and Associated Physician Practices is amultiple site organization consisting of ambulatory clinics and hospital sitesin [place], [place] and [place]. This disclosure is being madepursuant to the Care Everywhere program and may not contain all information available regarding this patient. Last updated 18.[facility] Social History Tobacco Use Types Packs/Day Years Used Date Smoking Tobacco: Never Assessed Sex and Gender Information Value Date Recorded Sex Assigned at Not on file Gender Identity Not on file Sexual Orientation Not on file Plan of Treatment Health Maintenance Due Date Last Done Comments COLOGUARD (AGES 45-75) - COL ON CA SCREENING 1971 COLON MONITORING 1971 COLONOSCOPY - COLON CA SCREENING 1971 CT COLONOGRAPHY - COLON CA SCREENING 1971 Colorectal Cancer Screening 1971 FIT - COLON CA SCREENING 1971 FLEX SIG - COLON CA SCREENING 1971 LIPID TESTING 1971 MAMMOGRAM 1971 PAP SMEAR 1971 HIV SCREENING 07/18/1986 HEPATITIS C SCREENING 07/14/1989 DTAP/TDAP/TD VACCINES (1 - Tdap) 07/18/1990 HEPATITIS B VACCINE (1 of 3 - 19+ 3-dose series) 07/18/1990 PNEUMOCOCCAL VACCINE 50+ (1 of 1 - PCV) 07/18/2021 ZOSTER VACCINE (1 of 2) 07/18/2021 COVID-19 VACCINE ( - 2023-2 5 season) 2024 INFLUENZA VACCINE (#1) 2024 DEPRESSION SCREENING 05/18/2024 HIB VACCINE Aged Out No longer eligi ble based on patient's age to complete this topic HPV VACCINE Aged Out No longer eligi ble based on patient's age to complete this topic MENINGOCOCCAL (Group B) VACCINE Aged Out No longer eligible based on patient's age to complete this topic MENINGOCOCCAL VACCINE Aged Out No yolanda bandar eligible based on patient's age to complete this topic PNEUMOCOCCAL VACCINE Aged Out No long er eligible based on patient's age to complete this topic
--- NOTE | 2024-07-13 00:27 | PC.NURSE ---
Patient's son to triage desk stating the patient does not want to wait to be seen and they are going to leave. Instructed to visit the nearest ED if symptoms worsen or any other concerns.
== END 2024-07-13 00:27 | disposition left against medical advice (07) ==
LOC: ANHED 00:31
PROVIDERS: PCP Family Medicine
DX: R22.42 Localized swelling, mass and lump, left lower limb (principal)
CPT/HCPCS: 99199